=== PATIENT | female | born 1950 | race Caucasian/White ===

== ENCOUNTER 2018-02-25 09:45 | Outpatient (RCR) | payer MEDICARE, BC ==
--- NOTE | 2018-01-26 18:20 | PT INITIAL EVALUATION ---
MEDICAL DIAGNOSIS: R LE pain and paresthesia TREATMENT DIAGNOSIS: Same DATE OF ONSET: 06/10/17 SUBJECTIVE: Moraima Back presents to PT for R distal lateral thigh numbness after pulling up [place]pen shoots in her backyard in May,. She's had LBP before and did well with core exercise. She denies valsalva maneuvers causing paresthesia. Oswestry Disability Index 14% impairment. Pain location is R distal lateral thigh and described as dense numbness. Pain scale is 2/10 constant numbness and 6/10 after standing 3.5 hours, driving one hour, trying to sleep at night on stomach or sides and better with sitting 30 minutes, laying supine. REHAB PROBLEM LIST: Increased Pain, Altered sleep, Decreased Core Strength, Decreased Spinal Mobility PREVIOUS MEDICAL HISTORY: Thyroid disorder. OCCUPATION: Part-time retail, Works of [employer]. OBJECTIVE: Posture: Increased lumbar lordosis,anterior R ilium and L rotated sacrum. ROM: AROM lumbar spine WNL, with flexion increased R L4 numbness, extension standing and supine centralizing symptoms. Hip PROM WNL without symptoms or pain. Knees, ankles PROM WNL. Strength: [place] muscles L3-S1 intact for motor function. Core strength 3/5. Palpation: High tone R lumbar extensors compared to R. Special Tests: DTR's 2/3, negative dural stretch and SLR, B. SI AROM tests WNL, sacral springing painful at the R SI. Mobility: Hypomobile T-L vertebral junction motion. Gait: WNL ASSESSMENT: Moraima Back presents with both R L4 nerve impingement and SI pain. She had less numbness after manual therapy and lumbar extension AROM. Short Term Goals 4 weeks: Moraima sleeps without awakening due to LE pain, centralizes R L4 symptoms to the spine. 6 weeks: Moraima sits, drives, stands without R L4 paresthesia or LBP. Patient's Goals Be ready to drive 8 hours, stand 3.5 hours without LBP or leg pain. PLAN: Patient to be seen for Manual Therapy, Ice/Heat, Range of Motion, Spinal Stabilization, Stretching, Electrical Stim, Posture/Body mechanics, Home Exercise Program 2x/Week for 6 Weeks Thank you for this referral. If you have any questions, comments, or concerns about this report or plan, please contact me at . [facility]
[~2018-02-25 09:45] MED LIST: ALB0.5 INH; THY60 PO
--- NOTE | 2018-02-25 11:08 | PT PLAN OF CARE ---
Physician: Michelle Luz APRN Patient is being seen: 2x/week Therapist: Daylin Aguirre PT Medical Diagnosis: R LE pain and paresthesia Treatment Diagnosis: Same Date of Onset: 06/10/17 Date of Initial Evaluation: 01/26/18 Date patient was last seen: 02/25/18 Number of treatments: 9 Number of cancellations/No shows: 0 INTERVENTIONS: Mechanical Traction, Manual Therapy, Heat, Range of Motion, Spinal Stabilization, Electrical Stim, Home Exercise Program GOALS: 4 weeks: Moraima sleeps without awakening due to LE pain (met), centralizes R L4 symptoms to the spine (not met). 6 weeks: Moraima sits, drives, stands without R L4 paresthesia (not met) or LBP (met). PATIENT'S GOAL: Be ready to drive 8 hours, stand 3.5 hours without LBP or leg pain. (all met) Patient Compliance: Excellent Prognosis: Excellent Reasons for discontinuing therapy: S: Moraima rates R distal thigh numbness 1/10, alleviated with traction. She would like to stop PT and try chiropractic intervention. Oswestry Disability Index 4% impairment. Posture: Increased lumbar lordosis. ROM: AROM lumbar spine WNL, no L4 symptoms. Palpation: Normal tone B lumbar extensors. Mobility: Normal mobility T-L vertebral junction motion. A/P: Moraima Back has reduced the amount of numbness at R L4, and has improved function without LBP. I'll DC PT to [facility]. Thank you. JOHN
== END 2018-02-25 18:00 | disposition home or self-care (01) ==
LOC: PT 09:45
PROVIDERS: ATTEND Nurse Practitioner Family
DX: M79.604 Pain in right leg (principal); R20.2 Paresthesia of skin; E07.9 Disorder of thyroid, unspecified
CPT/HCPCS: 97010; 97012; 97110; 97140; 97161; G0283

== ENCOUNTER → 2018-10-07 | Outpatient (CLI) | payer MEDICARE, BC ==
--- NOTE | 2018-10-07 15:26 | RADIOLOGY IMAGING REPORT ---
FACILITY: PATIENT NAME: DANICA ZHANG : [id number] MR: [id number] V: [id number] EXAM DATE: [id number] ORDERING PHYSICIAN: SAMEERA FRANKLIN TECHNOLOGIST: Sil Bowen PROCEDURE:BILATERAL DIGITAL SCREENING MAMMOGRAM WITH CAD ASSISTED INTERPRETATION & 3D TOMOSYNTHESIS COMPARISON:Prior mammograms 04/01/2017, 03/10/2016. INDICATIONS:SCREENING, BILATERAL BENIGN SURGICAL EXCISIONAL BIOPSIES. TISSUE DENSITY: Scattered fibroglandular densities. FINDINGS: There is no mammographic finding suspicious for malignancy, and no significant change compared to prior mammograms. DIAGNOSTIC CATEGORY 1--NEGATIVE. RECOMMENDATIONS: ANNUAL BILATERAL SCREENING MAMMOGRAM AND CLINICAL EVALUATION. IMPRESSION: BIRADS 1: Negative. Dictated by: Marcy Post M.D. on 10/07/2018 at 12:01 Transcribed by: MICHELLE on 10/07/2018 at 13:51 Approved by: Marcy Post M.D. on 10/07/2018 at 15:25 [facility]
== END ==
LOC: MAMO 04:45
PROVIDERS: ATTEND Obstetrics & Gynecology
DX: Z12.31 Encounter for screening mammogram for malignant neoplasm of breast (principal)
CPT/HCPCS: 77063; 77067